=== PATIENT | male | born 1925 | race Caucasian/White ===

== ENCOUNTER → 2016-07-07 | Outpatient (CLI) | payer OTHER ==
[~2016-07-07] VITALS: Ht 172.7 cm; Wt 103.1 kg
[~2016-07-07] MED LIST: ALLOPURINOL 30300 M1 PO; ALLOPURINOL 30300 M2 PO; CELEBREX 200 M200 MG PO; CENTRUM SILVER1 EAC4 PO; DIOVAN HCT 3201 EAC1 PO; DIOVAN160 MG PO; IBUPROFEN 800800 M1 PO; LISINOPRIL40 MG PO; LUMIGAN2.5 M1 OP; NORVASC10 MG PO; OCUVITE TABLET1 EAC1 PO; OXYCODONE-ACET1 EACH PO; TOPROL XL100 MG PO; TOPROL XL50 MG PO
--- NOTE | ~2016-07-07 | HPC ---
[facility] [address] [place] [address] PAIN MANAGEMENT CONSULTATION Name: TING CROFT Room #: REG ADRYAN Palencia#: [id number] Admission: 07/07/16 Attend Phys: Richard Munoz DO Discharge: Date of : 06/17/[birth year] Report #: [id number] THIS REPORT FOR: //name// CC: Dane Munoz The patient is a pleasant 89-year-old gentleman who is being treated for symptomatic lumbar radiculopathy, typically sees Dr. Jeff Burris. He has had epidural injections in the past, last injection was 01/18/2016, with significant improvement of baseline pain, the patient notes specifically 80% relief for 2 months, pain has gradually begun to recur. The patient notes today subjective pain score 7/10, low back pain radiating to the bilateral legs, primarily thighs, exacerbated with standing, walking and bending. PHYSICAL EXAMINATION: Shows 89-year-old gentleman, BMI is 34.6 kilograms per meter squared. Blood pressure shows modest hypertension 172/79, pulse 57, respirations 20. Rises from chair using armrest, modestly antalgic gait, positive straight leg raise bilaterally, decreased hip flexion strength. Reviewed diagnostic studies including MRI somewhat dated from 2008, does note a fusion at L2-L3, severe stenosis at L3-L4 and L4-L5. ASSESSMENT: Symptomatic lumbar radiculopathy secondary to spinal stenosis, component of axial back and lumbar spondylosis. RECOMMENDATION: Epidural injection under fluoroscopy today. Follow up simply as needed. PROCEDURE NOTE: Lumbar epidural injection under fluoroscopy. PROCEDURE NOTE: After both written and informed consent to include risk of spinal cord damage, increased pain, weakness and dural puncture, the patient was taken to the fluoroscopy suite, placed in the prone position. After sterile prep and drape, a skin wheal with lidocaine was raised. A 22-gauge epidural Tuohy needle was inserted in the midline at L2-L3 with good loss to resistance. Negative aspiration for cerebrospinal fluid or blood was noted. Then 1 mL of Omnipaque under biplanar fluoroscopy showed good spread within the epidural space. This was followed with 80 mg of triamcinolone plus 1 mL of 1.5% preservative-free Xylocaine, 0.5 mL Xylocaine was then injected to flush the needle; it was removed. The patient was monitored for an appropriate period of time and discharged in good and stable condition. <ELECTRONICALLY SIGNED> By: Richard Munoz DO 07/08/16 0837 [id number] Richard Munoz DO /nt
[2016-07-07 10:08] VITALS: BP 172/79
== END ==
LOC: PAIN 07:12
DX: M47.26 Other spondylosis with radiculopathy, lumbar region (principal); M48.06 Spinal stenosis, lumbar region; I10 Essential (primary) hypertension

== ENCOUNTER → 2017-03-24 | Outpatient (CLI) | payer OTHER ==
[~2017-03-24] VITALS: Ht 172.7 cm; Wt 101.0 kg
[~2017-03-24] MED LIST changes: +MOBIC15 MG PO
--- NOTE | ~2017-03-24 | HPC ---
[facility] [address] [place] [address] PAIN MANAGEMENT CONSULTATION Name: TING CROFT Room #: REG [facility] Slime#: [id number] Admission: 03/24/17 Attend Phys: Richard Munoz DO Discharge: Date of : 06/17/[birth year] Report #: [id number] THIS REPORT FOR: //name// CC: Dane Munoz The patient is an 89-year-old gentleman, prior seen 07/07/2016 for symptomatic lumbar radiculopathy. Did an epidural injection L2-L3 with overall improvement in baseline pain. Returns to pain clinic today noting that while that injection afforded good relief (per the patient 95% for 4 weeks with slow return to baseline), his pain is a little different now with low back, posterior thighs. Rates it a 10 on VAS. History of osteoarthritis, bilateral upper extremities. BMI is 33.9 kilograms per meter squared. Vital signs are generally stable. Subjective pain score quite high, 10/10. He has not fallen in the last 3 months. Does have history of hypertension. Medicines were reconciled. Does not use chronic opiates. PHYSICAL EXAMINATION: Shows 89-year-old gentleman. Rises from chair using armrest. Diffuse tenderness across the low back. Lumbar flexion is limited, some axial back pain in the low lumbar spine. Positive straight leg raise bilaterally. Slight decreased plantar flexion, lower extremity flexion strength. ASSESSMENT: Symptomatic lumbar radiculopathy by clinical exam and history secondary to spinal stenosis, axial back pain. RECOMMENDATION: Epidural injection under fluoroscopy today, midline L4-L5. Follow up simply as needed. PROCEDURE: Lumbar epidural injection under fluoroscopy. PROCEDURE NOTE: After both written and informed consent to include risk of spinal cord damage, increased pain, weakness and dural puncture, the patient was taken to the fluoroscopy suite, placed in the prone position. After sterile prep and drape, a skin wheal with lidocaine was raised. A 22-gauge epidural Tuohy needle was inserted in the midline at L4-L5 with good loss to resistance. Negative aspiration for cerebrospinal fluid or blood was noted. Then 1 mL of Omnipaque under biplanar fluoroscopy showed good spread within the epidural space. This was followed with 80 mg of triamcinolone plus 1 mL of 1.5% preservative-free Xylocaine, 0.5 mL Xylocaine was then injected to flush the needle; it was removed. The patient was monitored for an appropriate period of time and discharged in good and stable condition. <ELECTRONICALLY SIGNED> By: Richard Munoz DO 03/27/17 1026 1326 [id number] Richard Munoz DO /nt
[2017-03-24 11:27] VITALS: BP 145/84
== END | disposition home or self-care (01) ==
LOC: PAIN 06:59
DX: M48.061 Spinal stenosis, lumbar region without neurogenic claudication (principal); M19.90 Unspecified osteoarthritis, unspecified site; G89.29 Other chronic pain; Z79.899 Other long term (current) drug therapy; Z98.890 Other specified postprocedural states

== ENCOUNTER → 2017-04-21 | Outpatient (CLI) | payer OTHER ==
[~2017-04-21] VITALS: Ht 172.7 cm; Wt 99.1 kg
--- NOTE | ~2017-04-21 | HPC ---
[facility] [address] [address] PAIN MANAGEMENT CONSULTATION Name: TING CROFT Room #: REG Goran Palencia#: [id number] Admission: 04/21/17 Attend Phys: Richard Munoz DO Discharge: Date of : 06/17/[birth year] Report #: [id number] THIS REPORT FOR: //name// CC: Dane Munoz The patient is an 89-year-old gentleman, prior seen in the pain clinic 03/24/2017, he prior had been seen back in June 2016. He has symptomatic lumbar radiculopathy secondary to spinal stenosis. Last visit, we did an epidural injection at L4-L5, the patient returns to pain clinic today noting he had very good relief following the injection, notes specifically 100% for 1 month with a slow return to baseline. He notes pain is low back, lumbar spine, exacerbated with standing and walking greater than 100 feet. Fairly classic neurogenic claudication symptoms. I reviewed the MRI somewhat dated from 2008, which showed severe spinal stenosis at L3-L4 and L4-L5. PHYSICAL EXAMINATION: Today shows an 89-year-old gentleman, BMI is elevated at 33.2 kg/m2. Blood pressure is modestly elevated 159/87, pulse 55, respirations 20. Subjective pain score is 6 on a VAS. He is hypertensive, medication list was reconciled. He is not on blood thinner. He has not fallen in the last 3 months. Rises from chair using armrest. Gait is modestly antalgic. Diffuse tenderness across the low back. Lower extremity strength is diminished. Straight leg raise modestly positive bilaterally. ASSESSMENT: Symptomatic lumbar radiculopathy secondary to spinal stenosis with classic neurogenic claudication. RECOMMENDATIONS: 1. Repeat epidural injection under fluoroscopy today at L4-L5. 2. Follow up in 2 weeks for reevaluation. If symptoms continued, we will get an MRI of the lumbar spine and refer for consideration for decompressive laminectomy. Again, at 89 years of age, he may not be an excellent surgical candidate, but I do want him to ensure that we do not overlook any treatable options. PROCEDURE: Lumbar epidural injection under fluoroscopy. PROCEDURE NOTE: After both written and informed consent to include risk of spinal cord damage, increased pain, weakness and dural puncture, the patient was taken to the fluoroscopy suite, placed in the prone position. After sterile prep and drape, a skin wheal with lidocaine was raised. A 22-gauge epidural Tuohy needle was inserted in the midline at L4-L5 with good loss to resistance. Negative aspiration for cerebrospinal fluid or blood was noted. Then 1 mL of Omnipaque under biplanar fluoroscopy showed good spread within the epidural space. This was followed with 80 mg of triamcinolone plus 1 mL of 1.5% [address] [address] PAIN MANAGEMENT CONSULTATION Name: TING CROFT Room #: REG [facility] Slime#: [id number] Admission: 04/21/17 Attend Phys: Richard Munoz DO Discharge: Date of : 06/17[birth year] Report #: [id number] preservative-free Xylocaine, 0.5 mL Xylocaine was then injected to flush the needle; it was removed. The patient was monitored for an appropriate period of time and discharged in good and stable condition. <ELECTRONICALLY SIGNED> By: Richard Munoz DO 04/24/17 0747 1230 1635 Richard Munoz DO /nt
[2017-04-21 10:08] VITALS: BP 159/87
== END ==
LOC: PAIN 07:00
DX: M54.16 Radiculopathy, lumbar region (principal)

== ENCOUNTER → 2017-04-24 | Outpatient (CLI) | payer OTHER | LOC: EDSTATUS 09:05 → MRI 09:06 | DX: M48.061 Spinal stenosis, lumbar region without neurogenic claudication (principal); M54.16 Radiculopathy, lumbar region ==